=== PATIENT | female | born 1980 | race African-American/Black ===

== ENCOUNTER 2020-09-23 00:15 | Day surgery (SDC) | payer OTHER, SELFPAY ==
[2020-09-16 09:52] VITALS: BMI 30.1
--- NOTE | 2020-09-22 15:21 | P.PNAN_ITS ---
Anes - Initial Pre Proc Eval Procedure: Operation Date: 09/23/20 07:30 Proposed Procedures p Abdominoplasty - Raza Kerr MD Date/Time: 09/22/20 15:21 Surgeon: Raza Kerr MD Pre Op Diagnosis: skin laxity Patient Data Age: 40 Gender: F Height: 1.6 m Weight: 77.1 kg Allergies Allergy/AdvReac Type Severity Reaction Status Date / Time No Known Allergies Allergy Verified 09/23/20 06:28 Home Medications Medication Instructions Recorded Confirmed Type No Home Medications 09/23/20 09/23/20 History Patient hx anesthesia problems: none Family hx anesthesia problems: none [facility] Past Medical History Medical History (Updated 09/22/20 @ 15:21 by New Rueda MD) Obesity Surgical History Surgical History (Updated 09/09/20 @ 07:18 by Saima Caldwell) History of section Social History Social History Smoking status: Never smoker Alcohol intake: current Drinks per week: 1 Substance use: never Substance use type: does not use Living arrangements: with friend(s) Spiritual care concerns: No Anes - Eval Final PreProcedure Day of Procedure 09/22/20 15:21 Patient weight: obese Heart: regular rate and rhythm Lungs: clear to auscultation Airway: Mallampati scale class II Neurological: alert and oriented Last oral intake: >/= 8 hours ASA classification: II Emergent: no Anesthetic plan: proceed Anesthesia type and monitoring: general ETT and standard monitoring Informed Consent: The patient's anesthetic plan and its attendant risks and benefits were discussed with the patient/family/POA. Questions were solicited a nd answers provided to the satisfaction of the patient/family/POA.
[2020-09-23] VITALS (12 sets, daily range): BP systolic 107–132; BP diastolic 65–86; PULSE 74–95; RESP 16–20; TEMP 36.4–37.2; O2SAT 100
--- NOTE | 2020-09-23 06:55 | WPDHPUPDATE1 ---
History and Physical Update Update Date/Time: 09/23/20 06:55 History and Physical has been reviewed, including an updated exam of the patient. There are NO changes in the patient's condition. Risks, benefits, and alternatives have been discussed and questions answered. Patient agrees to proceed with procedure.
[2020-09-23 07:03] LABS: Urine Cotinine NEGATIVE
--- NOTE | 2020-09-23 07:06 | P.OP_ITS ---
Procedure Note - Detailed Date of Procedure 09/23/20 Pre-op Diagnosis skin laxity Post-op Diagnosis same Procedure Performed Progressive Tension Abdominoplasty Surgeon Raza Kerr MD Anesthesia general Findings Tissue removed - 2627 grams Recurrent epigastric hernia repaired by Dr. Solares Description of Procedure They are here today for abdominoplasty. Previously and again today the risks, benefits, alternatives were discussed in extensive detail. I wanted them to be very realistic about the risks involved as well as expectations. We discussed aftercare and what to monitor for. I was very upfront about the risks of wound breakdown leading to loss of skin, open wounds, and need for additional procedures with permanent abdominal deformity. We discussed DVT/PE risks and management. Made sure answered all of their questions to their satisfaction today and consent was obtained. They were marked in the preoperative holding area with their verification. The patient was taken to the operating room placed supine on the operating table. Anesthesia was provided by anesthesiology. A Diaz catheter was started. They were prepped and draped in a standard sterile fashion. A surgical time-out was taken. I placed the patient in a flexed position to verify the upper and lower markings would reach. I then placed supine. A thorough abdominal examination was completed. Stab incisions were made and tumescent solution infiltrated. A liposuction basket cannula was utilized to provide discontinuous undermining. A 10 blade was used to make the upper incision. I continued dissection down to the level of fascia. Elevated just what was necessary for repair of the diastasis. Superior to the umbilicus a hernia was identified. General surgery was available who entered and repaired the hernia. See Dr. Solares's note. I then again flexed the bed to verify the upper skin flap would reach the lower markings without tension. Once verified I placed her supine once again and a 10 blade used to make the lower incision. I elevated up to level the umbilicus and left the umbilicus intact on a well-vascularized stalk. The intervening tissue was removed. A 2 mm blunt cannula with 0.5% bupivicaine was injected deep to the fascia bilat erally. I plicated the diastasis recti using 0 PDO stratafix barbed suture. This was in 2 separate layers using 2 separate sutures as well. I repaired around the umbilicus leaving plenty of room for well-vascularized stalk of the umbilicus with 2-0 PDS. I also repaired lateral to the rectus using two layers of 0 PDO stratafix. The patient was flexed and starting from superior to inferior began plication using 2-0 Vicryl to obliterate all space in a standard progressive tension fashion. At the umbilicus I marked out the location of the skin and inset this with 3-0 Monocryl and 4-0 Vicryl. I continued the remainder of the plication using 2-0 Vicryl until I reached my lower planned scar line. I trimmed any excess skin of the upper flap making sure this was a tension-free closure. I then approximated using a 3 point suture with 2-0 Vicryl followed by 3-0 stratafix ,running subcuticular 4-0 Monocryl, and tissue glue. Fluffs and an abdominal binder were placed. The patient was transferred to the bed in a flexed position. Awoken and taken to the PACU without difficulty. All instrument and sponge counts were correct at the end of the case. Estimated Blood Loss 50 Drains No Packing No Pathology none sent Complications No immediate complications Condition stable Disposition PACU
[2020-09-23] MEDS: LACTATED RINGERS 1,000 ML 500 ML IV CONT (07:10)
[2020-09-23] MEDS: TRANEXAMIC ACID 1,000MG/ISO100 1,000 MG/100 ML BAG 200 MG IVPB (07:32)
[2020-09-23] MEDS: ceFAZolin 2 GM/D5W 50 ML 2 GM/50 ML BAG IVPB (07:32)
[2020-09-23] MEDS: BUPIVACAINE/EPINEPHRINE 0.5% 50 ML VIAL (08:26)
[2020-09-23] MEDS: LACTATED RINGERS IRRIG 1,000 ML, LIDOCAINE HCL 1% LOCAL INJ 50 ML, EPINEPHrine HCL INJ ... INFILTRATE (08:26)
--- NOTE | 2020-09-23 09:37 | W.PM.PROC2 ---
Procedure Note - Detailed Date of Procedure 09/23/20 Pre-op Diagnosis Recurrent, incarcerated epigastric incisional hernia Post-op Diagnosis same Procedure Performed repair of recurrent, incarcerated epigastric incisional hernia with mesh Surgeon Moraima Solares MD Anesthesia general Indications The patient is 40-year-old female presenting for abdominoplasty. During the procedure it was noted patient a recurrent, incarcerated epigastric incisional hernia. Intraoperative consultation was obtained Findings recurrent incarcerated epigastric incisional hernia Description of Procedure The patient had been taken to the operating room and placed in supine position. Abdominoplasty and exposure were started by Dr. Landaverde, please see full operative report for details of his procedure. During this exposure, Dr. Landaverde noted a incarcerated, recurrent epigastric incisional hernia. Intraoperative consultation was then obtained. Upon examining the patient, it was noted this defect would need to be repaired. I scrubbed in at this point. Co I then freed up the adhesions to the hernia sac. Once the hernia sac was completely free, I excised the sac. The contents of the hernia were noted to be incarcerated fat and omentum, which was completely viable. I then reduced the contents back into the abdominal cavity. I then freed up adhesions in the posterior space to allow placement mesh. There was some noted intra-abdominal dissolvable tacks likely from previous hernia repair. Of note, no mesh was encountered. Once completely dissected, the defect was approximately 1.5 cm. I then placed a 4.6 cm Ventralex mesh in the underlay position. This was sutured in with interrupted 0 Ethibond sutures. I then closed fascia over our mesh repair with interrupted [address] Landaverde then scrubbed back in to complete his abdominoplasty. Implants 4.6 cm Ventralex mesh Estimated Blood Loss 5 Drains No Packing No Pathology none sent Complications No immediate complications Condition stable Disposition no change
[2020-09-23] MEDS: LACTATED RINGERS 1,000 ML 30 ML IV CONT (11:38)
[2020-09-23] MEDS: LACTATED RINGERS 1,000 ML 125 ML IV CONT (14:09)
[2020-09-23] MEDS: carisoprodoL (*CRX) 350 MG TABLET PO ×2 (14:10→20:15)
[2020-09-23] MEDS: MORPHINE SULFATE (*CRX) 2 MG/ML INJ IV PUSH ×2 (14:44→20:15)
[2020-09-23] MEDS: oxyCODONE/ACETAMINOPHEN (*CRX) 5-325 MG TABLET PO ×2 (16:32→22:14)
[2020-09-23] MEDS: ENOXAPARIN 40 MG/0.4 ML SYRINGE SUB-Q (18:14)
[2020-09-23] MEDS: DOCUSATE SODIUM 100 MG CAPSULE PO (20:15)
[2020-09-24 04:15] VITALS: BP 118/77; PULSE 96; RESP 16; TEMP 37.1; O2SAT 100
[2020-09-24] MEDS: oxyCODONE/ACETAMINOPHEN (*CRX) 5-325 MG TABLET PO ×3 (04:18→14:16)
[2020-09-24] MEDS: carisoprodoL (*CRX) 350 MG TABLET PO ×2 (04:19→10:17)
[2020-09-24] MEDS: ONDANSETRON INJ 4 MG/2 ML VIAL IV PUSH (05:12)
--- NOTE | 2020-09-24 06:56 | WPDPN ---
Progress Note: A&P Assessment and Plan (1) Skin laxity: Code(s): L57.4 - Cutis laxa senilis Status: Acute Assessment and Plan: She is doing very well. Will discharge home. Follow up in 1 week. Today we had a lengthy discussion about the care. Discussed monitor for. This was a lengthy open-ended conversation making sure answered all of her questions. She understands her activity limitations. I will see her back. She understands with any shortness of breath, chest pain, or other medical emergency to proceed to the ER/ dial 911. Subjective Date/time seen: 09/24/20 06:56 She states she is doing very well this morning. No fevers or chills. No nausea vomiting. No shortness of breath. No chest pain. No calf tenderness. Pain controlled. Review of Systems Review of Systems: All systems reviewed & are unremarkable except as noted in HPI and below Exam Narrative: Alert and oriented no obvious distress Respiratory is a labor Abdomen soft. No signs of infection. No hematoma. No seroma. Good color and capillary refill. No calf tenderness. Negative Homans. Objective Data Vital Signs Vital Signs: Vital Signs - 24 hr 09/23/20 11:38 09/23/20 11:45 09/23/20 12:00 Temperature 36.9 C Pulse Rate 78 92 76 Respiratory Rate 16 16 18 Blood Pressure 107/69 132/76 123/67 Pulse Oximetry 100 100 100 09/23/20 12:15 09/23/20 12:30 09/23/20 12:45 Temperature 36.8 C Pulse Rate 74 79 78 Respiratory Rate 18 18 19 Blood Pressure 125/75 124/76 116/69 Pulse Oximetry 100 100 100 09/23/20 13:00 09/23/20 13:25 09/23/20 16:25 Temperature 37.0 C 36.6 C Pulse Rate 79 82 78 Respiratory Rate 19 16 18 Blood Pressure 115/69 117/65 110/79 Pulse Oximetry 100 100 100 09/23/20 20:20 09/23/20 23:10 09/24/20 04:15 Temperature 36.4 C 36.5 C 37.1 C Pulse Rate 95 85 96 Respiratory Rate 18 16 16 Blood Pressure 126/73 114/75 118/77 Pulse Oximetry 100 100 100 Intake/Output Intake/Output: Intake & Output 09/21/20 09/22/20 09/23/20 09/24/20 23:59 23:59 23:59 23:59 Intake Total 1900 200 Output Total 960 300 Balance 940 -100 Meds/Results Medications: Active Medications Generic Name Dose Route Start Last Admin Trade Name Freq PRN Reason Stop Dose Admin Carisoprodol 350 mg 09/23/20 14:00 09/24/20 04:19 Carisoprodol (*Crx) 350 Mg Tablet PO 350 mg Q6H JACQUI Administration Docusate Sodium 100 mg 09/23/20 21:00 09/23/20 20:15 Docusate Sodium 100 Mg Capsule PO 100 mg Q12HR JACQUI Administration Enoxaparin Sodium 40 mg 09/23/20 18:00 09/23/20 18:14 Enoxaparin 40 Mg/0.4 Ml Syringe SUB-Q 40 mg DAILY JACQUI Administration Lactated Ringer's 1,000 mls @ 125 mls/hr 09/23/20 11:15 09/23/20 14:09 Lr - Lactated Ringers Iv IV CONT 125 mls/hr .Q8H JACQUI Administration Morphine Sulfate 2 mg 09/23/20 11:15 09/23/20 20:15 Morphine Sulfate (*Crx) 2 Mg/Ml Inj IV PUSH 2 mg Q2H PRN Administration Pain Ondansetron HCl 4 mg 09/23/20 11:15 09/24/20 05:12 Ondansetron Inj 4 Mg/2 Ml Vial IV PUSH 4 mg Q6H PRN Administration Nausea Oxycodone/Acetaminophen 1 - 2 tablet 09/23/20 11:15 09/24/20 04:18 Oxycodone/Acetaminophen (*Crx) 5-325 Mg Tablet PO 1 tablet Q6H PRN Administration Pain Labs Labs: Laboratory Results - last 24 hr 09/23/20 06:32 Cotinine Negative
--- NOTE | 2020-09-24 06:58 | P.DS_ITS ---
DS: Admitting Diagnosis Admitting Diagnosis Skin laxity DS: Discharge Diagnosis Discharge Diagnosis (1) Skin laxity: Code(s): L57.4 - Cutis laxa senilis Status: Acute (2) Epigastric hernia: Code(s): K43.9 - Ventral hernia without obstruction or gangrene Status: Acute DS: Summary Hospital Course Hospital Course: Patient underwent progressive tension abdominoplasty. Intraoperatively was discovered that her epigastric hernia had recurred. Dr. Solares repaired this. Postoperatively she has done very well. Pain controlled. Ambulating. Tolerating diet. Will discharge home. Time Spent with Patient Time attestation: Total time spent providing and/or coordinating discharge services: Exam Narrative: Alert and oriented no obvious distress Respiratory is a labor Abdomen soft. No signs of infection. No hematoma. No seroma. Good color and capillary refill. No calf tenderness. Negative Homans. DS: Data Data Completed and Pending Labs on day of discharge: Labs from last 24 hours 09/23/20 06:32 Cotinine Negative Discharge Plan Discharge Patient Disposition: Home, Self-Care Discharge Instructions: POST OPERATIVE DISCHARGE INSTRUCTIONS RAZA KERR M.D. [facility] PLASTIC SURG[facility] [address] [place] [address] * No driving for 24 hours after anesthesia and while you are taking pain medication. * Take all prescribed medication as directed * Diet as tolerated. * No lifting or activity that raises blood pressure for 48 hours. * Regular walking / ambulation. * May shower.. Once you shower do not take pain medication before showering as the combination of medication and heat may cause you to feel dizzy or pass out. * No pools or tubs for 2 weeks. * Slowly stand up straight as tolerated over the week. * No straining or lifting more than 20 pounds. * Call with any questions or concerns. * Dressing Care: Abdominal binder to comfort 23 hours per day. If you have any questions or concerns, please call the office . If it is after hours you will be directed to the lawn care professional exchange. Shortness of breath, chest pain, or other medical emergency dial 911 / proceed to the Emergency Room. Stand Alone Forms: General Discharge Instructions Follow-up/Referrals: Raza Kerr MD [Physician] - 1 Week Discharge Medications: No Action No Home Medications RF: 0
[2020-09-24 08:00] VITALS: BP 120/68; PULSE 80; RESP 14; TEMP 36.8; O2SAT 100
[2020-09-24] MEDS: SIMETHICONE 80 MG TAB.CHEW (08:44)
[2020-09-24] MEDS: ENOXAPARIN 40 MG/0.4 ML SYRINGE SUB-Q (08:44)
[2020-09-24] MEDS: DOCUSATE SODIUM 100 MG CAPSULE PO (08:44)
[2020-09-24 08:45] VITALS: PULSE 96; RESP 16; O2SAT 100
--- NOTE | 2020-09-24 10:03 | WPDANESPN ---
Anes - Prog Note Post-Op Date/Time: 09/24/20 10:03 Cardiovascular status: normal Respiratory status: normal Airway patency: baseline Mental status: baseline Post-Op hydration status: normal Vital Signs: Last Vital Signs Temp 98.8 F 09/24/20 04:15 Pulse 96 09/24/20 04:15 Resp 16 09/24/20 04:15 BP 118/77 09/24/20 04:15 Pulse Ox 100 09/24/20 04:15 Pain Score (VAS): 0/10 I/O: Intake & Output 09/23/20 09/24/20 09/24/20 23:59 07:59 15:59 Intake Total 750 200 Output Total 900 300 Balance -150 -100 Post-procedural complaints: none Patient Feedback: Patient satisfied with anesthetic care.
[2020-09-24 13:00] VITALS: BP 124/72; PULSE 62; RESP 16; TEMP 36.8; O2SAT 100
== END 2020-09-24 14:22 | disposition home or self-care (01) ==
LOC: ANHSURGERY 07:13 → ANHOB2 13:42
PROVIDERS: Surgery; PCP Registered Nurse; Visit Provider Surgery Plastic and Reconstructive Surgery
PROC: (CPT 15830; principal; 2020-09-23 07:30)
PROC: 0WQF0ZZ Repair Abdominal Wall, Open Approach (ICD-10-PCS; CPT 49566; 2020-09-23 07:30)
DX: Z41.1 Encounter for cosmetic surgery (principal); L57.4 Cutis laxa senilis; K43.0 Incisional hernia with obstruction, without gangrene; Z90.49 Acquired absence of other specified parts of digestive tract; E66.9 Obesity, unspecified; Z68.41 Body mass index [BMI] 40.0-44.9, adult
CPT/HCPCS: 49566; 49568; 15830; 15847; 80307; 99199; A9270; C1781; J0171; J0690; J1100; J1170; J1650; J2250; J2270; J2405; J2704; J2710; J3010; J7120

== ENCOUNTER 2021-03-17 07:04 | Outpatient (CLI) | payer OTHER, SELFPAY ==
--- NOTE | ~2021-03-17 | CT_ITS ---
EXAMINATION: CT abdomen pelvis w con DATE: 03/17/2021 07:40 INDICATION: Generalized abdomen pain. TECHNIQUE: Computed tomography (CT) of the abdomen and pelvis was performed with 100 cc Omnipaque 350 intravenous contrast. The dose-length product was 905.38 mGy-cm. Automated exposure control and iter ative reconstruction technique were employed. COMPARISON: None. FINDINGS: Lung bases are unremarkable. Heart size is normal. No significant pleural or pericardial ef fusion. There is abnormal bladder wall thickening. There is subtle perivesical infiltration of the fa t along the superior margin of the bladder. Findings compatible with cystitis. There is subcutaneous edema along the anterior abdominal wall extending to the umbilicus. Findings suspicious for celluliti s. No lymphadenopathy. No acute osseous abnormality. Mild levoscoliosis of the thoracolumbar spine. N ormal appendix. No significant vascular abnormality. No significant lymphadenopathy. Small hiatal her tom. IMPRESSION: 1. Fatty infiltration of the subcutaneous fat lower/mid abdominal wall involving the umbilicus, suspi cious for cellulitis. No discernible abscess. 2: Abnormal bladder wall thickening with mild perivesical fatty infiltration superior to the bladder , suspicious for cystitis. Reviewed, dictated and finalized at location B. [employer]IST[employer] IMPRESSION: 1. Fatty infiltration of the subcutaneous fat lower/mid abdominal wall involvin g the umbilicus, suspicious for cellulitis. No discernible abscess. 2: Abnormal bladder wall thickening with mild perivesical fatty infiltration s uperior to the bladder, suspicious for cystitis.
== END 2021-03-17 07:05 | disposition home or self-care (01) ==
LOC: ANHIMG 07:06
PROVIDERS: PCP Registered Nurse; Visit Provider Surgery
DX: R10.84 Generalized abdominal pain (principal)
CPT/HCPCS: 74177; Q9967